=== PATIENT | male | born 1980 | race Caucasian/White ===

== ENCOUNTER → 2017-01-28 | Outpatient (CLI) | payer OTHER ==
[~2017-01-28] MED LIST: BUPIVACAINE/PF 0.5% INJ ONE; LIDOCAINE 2%, 20ML ONE; OMNIPAQUE 300 MG/ML, 10ML VIAL ONE; SODIUM BICARBONATE 4.2%, 5ML ONE; TRIAMCINOLONE ACETONIDE 40 MG/ML, 1ML ONE
== END | disposition home or self-care (01) ==
LOC: RAD 13:35
PROVIDERS: ATTEND Nurse Practitioner
DX: M21.6X1 Other acquired deformities of right foot (principal); M79.671 Pain in right foot; Z98.890 Other specified postprocedural states
CPT/HCPCS: 77002; J3301; J3490; Q9967

== ENCOUNTER → 2017-03-25 | Outpatient (CLI) | payer OTHER ==
[~2017-03-25] MED LIST changes: -BUPIVACAINE/PF 0.5% INJ ONE; +LIDOCAINE 1%, 20ML ONE; -LIDOCAINE 2%, 20ML ONE; +ROPIvacaine/PF 0.5%, 20 ML ONE; -SODIUM BICARBONATE 4.2%, 5ML ONE
== END | disposition home or self-care (01) ==
LOC: RAD 12:54
PROVIDERS: ATTEND Orthopaedic Surgery
DX: M21.6X1 Other acquired deformities of right foot (principal); M25.774 Osteophyte, right foot
CPT/HCPCS: 77002; J2795; J3301; J3490; Q9967